=== PATIENT | female | born 1960 | race Caucasian/White ===

== ENCOUNTER → 2016-03-10 | Outpatient (CLI) | payer OTHER ==
[~2016-03-10] MED LIST: FLUT0.15 NAE
[2016-03-10 15:01] LABS: T3 TOTAL 1.21 ng/ml (0.60-1.81); THYROXINE (T4) 4.6 mcg/dl (4.5-10.9)
== END | disposition home or self-care (01) ==
LOC: C.LAB1850 13:16
PROVIDERS: ATTEND Physical Medicine & Rehabilitation
DX: E55.9 Vitamin D deficiency, unspecified (principal); E28.39 Other primary ovarian failure; E03.9 Hypothyroidism, unspecified

== ENCOUNTER → 2016-03-25 | Outpatient (CLI) | payer OTHER ==
--- NOTE | 2016-03-25 15:47 | DIAGNOSTIC IMAGING REPORT ---
THYROID ULTRASOUND CLINICAL HISTORY: R/O DOMINANT NODULE RESIDUAL GLAND/HASHIMOTOS COMPARISON STUDY: Thyroid ultrasound March 17, 2015. TECHNIQUE: Sonography of the thyroid gland was performed. FINDINGS: The patient is status post right thyroid lobectomy. There is no abnormality within the lobectomy bed. The left lobe measures 4.1 x 1.3 x 1.1 cm and is sonographically normal. The isthmus measures 0.2 cm in thickness. IMPRESSION: 1. Expected findings following right thyroid lobectomy. No residual nodule. 2. No left lobe thyroid nodule. Electronically signed by: Arthur Mac M.D. 03/25/2016 3:45 PM Dictated Date/Time: 03/25/2016 3:43 PM
== END | disposition home or self-care (01) ==
LOC: C.ULTR 15:24
PROVIDERS: ATTEND Internal Medicine Endocrinology, Diabetes & Metabolism
DX: E04.2 Nontoxic multinodular goiter (principal); E03.8 Other specified hypothyroidism; E06.3 Autoimmune thyroiditis; Z85.850 Personal history of malignant neoplasm of thyroid

== ENCOUNTER → 2016-04-06 | Outpatient (CLI) | payer OTHER ==
[2016-04-06 15:13] LABS: THYROID STIMULATING HORMONE 1.19 uIu/ml (0.300-4.500)
[2016-04-09 08:04] LABS: THYROGLOBULIN 9.5 NG/ML (2.8-40.9)
== END | disposition home or self-care (01) ==
LOC: C.LAB1850 13:39
DX: E04.2 Nontoxic multinodular goiter (principal); E03.8 Other specified hypothyroidism; E06.3 Autoimmune thyroiditis; Z85.850 Personal history of malignant neoplasm of thyroid

== ENCOUNTER → 2016-12-20 | Outpatient (CLI) | payer OTHER | END | disposition home or self-care (01) | LOC: C.PAPS 14:49 | PROVIDERS: ATTEND Obstetrics & Gynecology | DX: Z01.419 Encounter for gynecological examination (general) (routine) without abnormal findings (principal) ==

== ENCOUNTER → 2017-01-16 | Outpatient (CLI) | payer OTHER ==
--- NOTE | 2017-01-17 07:42 | MAMMOGRAPHY REPORT ---
BILATERAL DIGITAL SCREENING MAMMOGRAM TOMOSYNTHESIS WITH CAD: 01/16/2017 CLINICAL HISTORY: Routine screening. Patient has no complaints. TECHNIQUE: Breast tomosynthesis in addition to standard 2D mammography was performed. Current study was also evaluated with a Computer Aided Detection (CAD) system. COMPARISON: Comparison is made to exams dated: 11/11/2015 mammogram, 11/06/2015 mammogram, 09/18/2013 taryn mogram, 07/15/2010 mammogram, 07/07/2010 mammogram, and 03/17/2009 mammogram - [facility]. BREAST COMPOSITION: The tissue of both breasts is heterogeneously dense, which may obscure small mas ses. FINDINGS: There is a possible area of architectural distortion in the upper outer middle one third o f the left breast (best seen on cc tomosynthesis slice 36 and MLO tomosynthesis slice 25), for which additional spot compression tomosynthesis views and possible ultrasound are recommended. There are a lso possible faint punctate microcalcifications near the area of questionable distortion also in the upper outer quadrant of the left breast, warranting additional spot magnification views. No other suspicious mass, architectural distortion or cluster of microcalcifications is seen bilatera lly. IMPRESSION: ACR BI-RADS CATEGORY 0: INCOMPLETE EVALUATION: NEED ADDITIONAL IMAGING EVALUATION The possible area of architectural distortion and possible faint adjacent microcalcifications in the upper outer quadrant of the left breast need additional imaging evaluation. The patient will be called to schedule an appointment. Approximately 10% of breast cancers are not detected with mammography. A negative mammographic report should not delay biopsy if a clinically suggestive mass is present. Gabby Valencia M.D. ay/:01/16/2017 16:01:41 Die Polisher: Constance Buckner M, [facility] letter sent: Addl Imaging 0 BI-RADS Code: ACR BI-RADS Category 0: Incomplete Evaluation: Need Additional Imaging Evaluation
== END | disposition home or self-care (01) ==
LOC: C.MAMM 12:35
PROVIDERS: ATTEND Internal Medicine
DX: Z12.31 Encounter for screening mammogram for malignant neoplasm of breast (principal); N64.89 Other specified disorders of breast

== ENCOUNTER → 2017-01-23 | Outpatient (CLI) | payer OTHER ==
[~2017-01-23] MED LIST changes: +NATURE THROID PO
--- NOTE | 2017-01-23 17:06 | DIAGNOSTIC IMAGING REPORT ---
SOFT TISS HEAD/NECK-THYROID HISTORY: Nodule L03.8,E06.3 COMPARISON: 04/02/2016 FINDINGS: Right lobe: Surgically removed Left lobe: Maximum linear dimension 4.5 cm. No significant nodularity Isthmus: No nodules. IMPRESSION: 1. Stable postoperative resection of the right thyroid gland. 2. Normal left thyroid. 3. No change from the prior study The above report was generated using voice recognition software. It may contain grammatical, syntax or spelling errors. Electronically signed by: Chang Oscar M.D. 01/23/2017 5:05 PM Dictated Date/Time: 01/23/2017 5:01 PM
== END | disposition home or self-care (01) ==
LOC: C.ULTR 16:08
PROVIDERS: ATTEND Internal Medicine Endocrinology, Diabetes & Metabolism
DX: E04.2 Nontoxic multinodular goiter (principal); E06.3 Autoimmune thyroiditis; E03.8 Other specified hypothyroidism

== ENCOUNTER → 2017-01-23 | Outpatient (CLI) | payer OTHER ==
--- NOTE | 2017-01-23 14:45 | MAMMOGRAPHY REPORT ---
UNILATERAL LEFT DIGITAL DIAGNOSTIC MAMMOGRAM TOMOSYNTHESIS WITH CAD AND TARGETED LEFT ULTRASOUND: CLINICAL HISTORY: 56-year-old woman called back from screening mammography for a possible area of arc hitectural distortion in the left upper outer quadrant, and possible microcalcifications, also in the left upper outer quadrant. Family history of breast cancer = mother and maternal great grandmother. TECHNIQUE: Spot magnification left CC, ML and spot compression left CC and MLO tomosynthesis images were obtained. COMPARISON: Comparison is made to exams dated: 01/16/2017 mammogram - [facility], 11/11/2015 mammogram, 11/06/2015 mammogram, 09/18/2013 mammogram, 07/15/2010 mammogram, and 07/07/2010 mammog tara - [facility]. BREAST COMPOSITION: The tissue of the left breast is heterogeneously dense, which may obscure small masses. FINDINGS: The spot magnification views of the left upper outer quadrant demonstrate a few scattered p unctate microcalcifications. There is no definitive grouping or cluster of suspicious microcalcifica tions identified. The spot compression tomosynthesis views of the left breast demonstrate a possible area of distortion in the lateral middle one third of the left breast (CC tomosynthesis slice 41). No definite area of distortion is identified on the corresponding MLO tomosynthesis images. Further evaluation with ult rasound was performed. Targeted ultrasound was performed in the lateral left breast. The breast parenchymal echotexture is heterogeneous and dense with multiple shadowing areas throughout slightly lowering the sensitivity of ultrasound. Within this limitation, there is a benign cyst measuring 3.6 mm in the 1:00 axis, 1 cm from the nipple. No definite area of architectural distortion or sonographic correlate for the possi ble mammographic distortion is seen. No suspicious irregular solid mass is identified. IMPRESSION: ACR BI-RADS CATEGORY 0: INCOMPLETE EVALUATION: NEED ADDITIONAL IMAGING EVALUATION, TARG ETED ULTRASOUND ACR BI-RADS CATEGORY 0: INCOMPLETE EVALUATION: NEED ADDITIONAL IMAGING EVALUATION 1. There is questionable persistent architectural distortion in the lateral left breast, only seen o n the CC tomosynthesis images, without definite sonographic correlate identified. This finding remai ns indeterminate, particularly given the personal history of dense breasts and strong family history of breast cancer and an infiltrative process such as lobular carcinoma cannot be completely excluded. Therefore, definitive characterization with a contrast-enhanced bilateral breast MRI is recommended . 2. There are no definite clustered or grouped suspicious calcifications in the left upper outer quad rant with the additional spot magnification views. These results and recommendations were discussed with the patient at the time of the exam. Approximately 10% of breast cancers are not detected with mammography. A negative mammographic report should not delay biopsy if a clinically suggestive mass is present. Gabby Valencia M.D. ay/:01/23/2017 12:48:59 Picture Booker: Aileen Cervantes RT(R)(M), [facility] letter sent: Addl Imaging 0 BI-RADS Code: ACR BI-RADS Category 0: Incomplete Evaluation: Need Additional Imaging Evaluation Ult rasound BI-RADS: ACR BI-RADS Category 0: Incomplete Evaluation: Need Additional Imaging Evaluation
== END | disposition home or self-care (01) ==
LOC: C.MAMM 11:00
PROVIDERS: ATTEND Internal Medicine
DX: R92.0 Mammographic microcalcification found on diagnostic imaging of breast (principal); N64.89 Other specified disorders of breast

== ENCOUNTER → 2017-01-24 | Day surgery (SDC) | payer OTHER ==
[2017-01-23 10:25] VITALS: Ht 175.3 cm; Wt 83.2 kg
[~2017-01-24] VITALS: Ht 175.3 cm; Wt 83.2 kg
[~2017-01-24] MED LIST changes: +ETOMIDATE 2 MG/ML 20 ML VIAL IV ONE; +LIDOCAINE HCL 2% 2 ML VIAL (20MG/ML) ONE; +MIDAZOLAM HCL 1 MG/ML 2ML VIAL ONE; +ONDANSETRON INJ 2 MG/ML 2 ML VIAL ONE; +PROPOFOL IV EMULSION 10 MG/ML 20 ML VIAL IV ONE; +SODIUM CHLORIDE 0.9% 500ML 500 ML IV ONE
--- NOTE | 2017-01-24 09:37 | Endo History and Physical ---
History & Physical Date of Service: Jan 24, 2017. Chief Complaint: REFLUX DISEASE WITH ESOPHAGITIS Referring Physician: History of Present Illness patient with significant reflux symptoms. Past Surgical History Hx Cardiac Surgery: No Hx Internal Defibrillator: No Hx Pacemaker: No Hx Abdominal Surgery: Yes (HYSTEROSCOPY) Hx of Implantable Prosthesis: No Hx Post-Op Nausea and Vomiting: Yes Hx Cancer Surgery: Yes (RT PARTIAL THRYOIDECTOMY) Hx Thoracic Surgery: No Hx Orthopedic: No Hx Urinary Tract Surgery: No Family History None Social History Smoking Status: Never Smoker Hx Substance Use: No Hx Alcohol Use: Yes (3 GLASSES WINE WEEKLY) Allergies Coded Allergies: Penicillins (Verified Allergy, Intermediate, HIVES, 01/24/17) Codeine (Verified Adverse Reaction, Mild, N&V, 01/24/17) Doxycycline (Verified Adverse Reaction, Mild, hives, 01/24/17) unsure if reaction to med or to the sun Ibuprofen (Verified Adverse Reaction, Mild, GI UPSET AND ABD PAIN, ) Current Medications Reported Home Medications Medications Dose Route/Sig Max Daily Dose Days Date Category Dose Instructions [Nature Throid] 1 Dose PO BID 01/23/17 Reported 1 DOSE IN AM 1/2 DOSE IN PM Flonase Allergy Relief (Fluticasone Propionate (Nasal)) 50 Mcg/Act Spr 2 Sprays MANASA DAILY PRN 08/27/15 Reported Vital Signs Weight (Kilograms): 83.18 Height (Feet): 5 Height (Inches): 9 Date Time Temp Pulse Resp B/P (MAP) Pulse Ox O2 Delivery O2 Flow Rate FiO2 01/24/17 09:26 36.6 79 18 117/76 (90) 96 Room Air Physical Exam General Appearance: no apparent distress Respiratory/Chest: Auscultation: breath sounds normal Cardiovascular: Heart Auscultation: RRR Abdomen: Inspection & Palpation: soft Liver: non-tender Assessment and Plan stable for EGD
--- NOTE | 2017-01-24 10:04 | Discharge Instructions ---
Endoscopy Patient Instructions Date / Procedure(s) Performed Jan 24, 2017. EGD Allergy Information Coded Allergies: Penicillins (Verified Allergy, Intermediate, HIVES, 01/24/17) Codeine (Verified Adverse Reaction, Mild, N&V, 01/24/17) Doxycycline (Verified Adverse Reaction, Mild, hives, 01/24/17) unsure if reaction to med or to the sun Ibuprofen (Verified Adverse Reaction, Mild, GI UPSET AND ABD PAIN, ) Discharge Date / Findings Jan 24, 2017. normal upper endoscopy Provider Instructions Activity Restrictions - No exercising or heavy lifting for 24 hours. - Do not drink alcohol the day of the procedure. - Do not drive a car or operate machinery until the day after the procedure. - Do not make any important decisions or sign important papers in 24 hours after the procedure. Following Day: - Return to full activity which may include returning to work/school. Diet Start your diet with liquids and light foods (jello, soup, juice, toast). Then eat your usual diet if not nauseated. Treatment For Common After Affects For mild abdominal pain, bloating, or excessive gas: - Rest - Eat lightly - Lie on right side Follow-Up Information Follow-up with as scheduled Anesthesia Information What You Should Know You have had a procedure that required some medicine to reduce anxiety and discomfort. This treatment is called moderate sedation. After receiving the treatment, you may be sleepy, but you will be able to breathe on your own. The effects of the treatment may last for several hours. Follow these instructions along with Activity/Diet recommendations noted above: * Do NOT do anything where dizziness or clumsiness would be dangerous. * Rest quietly at home today, then you can be up and about tomorrow. * Have a responsible person stay with you the rest of today. * You may have had an I.V. today. If so, you may take the dressing off later today. Recommendations Call your doctor if: * Trouble breathing * Continuous vomiting for more than 24 hours * Temperature above 101 degrees * Severe abdominal pain or bloating * Pain not relieved by pain medicine ordered * There is increased drainage or redness from any incision * A large amount of rectal bleeding greater than 2-3 tablespoons. (If you had a polyp/s removed or have hemorrhoids, a small amount of blood - from the rectum is to be expected.) * You have any unanswered questions or concerns. IN THE EVENT OF A SERIOUS EMERGENCY, GO TO THE NEAREST EMERGENCY ROOM Your discharge instructions were prepared by provider Clark Patino. Patient Instructions Signature Page Antonella Figueroa Patient (or Guardian) Signature/Date: I have read and understand the instructions given to me by my caregivers. Caregiver/RN/Doctor Signature/Date: The above-named patient and/or guardian has received patient instructions on this date. + Original Patient Signature Page (only) stays with chart. Please make copy for patient.
--- NOTE | 2017-01-24 10:14 | GI REPORT ---
Procedure Date: 01/24/2017 9:33 AM Procedure: Upper GI endoscopy Indications: Epigastric abdominal pain, Dyspepsia Medicines: See the Anesthesia note for documentation of the administered medications Complications: No immediate complications. Estimated Blood Loss: Estimated blood loss: none. Estimated blood loss: none. Procedure: Pre-Anesthesia Assessment: - Prior to the procedure, a History and Physical was performed, and patient medications, allergies and sensitivities were reviewed. The patient's tolerance of previous anesthesia was reviewed. - The risks and benefits of the procedure and the sedation options and risks were discussed with the patient. All questions were answered and informed consent was obtained. - Patient identification and proposed procedure were verified prior to the procedure by the physician and the nurse. The procedure was verified in the pre-procedure area. - Pre-procedure physical examination revealed no contraindications to sedation. - After reviewing the risks and benefits, the patient was deemed in satisfactory condition to undergo the procedure. After obtaining informed consent, the endoscope was passed under direct vision. Throughout the procedure, the patient's blood pressure, pulse, and oxygen saturations were monitored continuously. The Scope was introduced through the mouth, and advanced to the third part of duodenum. The upper GI endoscopy was accomplished without difficulty. The patient tolerated the procedure well. Findings: The esophagus was normal. The stomach was normal. The examined duodenum was normal. The cardia and gastric fundus were normal on retroflexion. Impression: - Normal esophagus. - Normal stomach. - Normal examined duodenum. - No specimens collected. Recommendation: - Discharge patient to home. Clark Patino M.D. Clark Patino MD 01/24/2017 10:14:17 AM This report has been signed electronically. Note Initiated On: 01/24/2017 9:33 AM I attest to the content of the Intraoperative Record and orders documented therein, exceptions below
--- NOTE | 2017-01-24 10:31 | Anesthesiology Progress Note ---
Anesthesia Post Op Note Date & Time Jan 24, 2017 at 10:31 Vital Signs Pain Intensity: 1 Vital Signs Past 12 Hours Date Time Temp Pulse Resp B/P (MAP) Pulse Ox O2 Delivery O2 Flow Rate FiO2 01/24/17 10:25 72 18 127/65 (85) 100 Room Air 01/24/17 10:10 76 16 138/78 (98) 98 Room Air 01/24/17 09:26 36.6 79 18 117/76 (90) 96 Room Air Notes Mental Status: alert / awake / arousable, participated in evaluation Pt Amnestic to Procedure: Yes Nausea / Vomiting: adequately controlled Pain: adequately controlled Airway Patency, RR, SpO2: stable & adequate BP & HR: stable & adequate Hydration State: stable & adequate Anesthetic Complications: no major complications apparent
[2017-01-24 10:40] VITALS: BP 136/85; PULSE 73; O2SAT 99
== END | disposition home or self-care (01) ==
LOC: C.GI 08:53
PROVIDERS: ATTEND Internal Medicine Gastroenterology
DX: R10.13 Epigastric pain (principal); G47.33 Obstructive sleep apnea (adult) (pediatric); Z98.890 Other specified postprocedural states; Z90.89 Acquired absence of other organs; Z88.0 Allergy status to penicillin; Z88.1 Allergy status to other antibiotic agents; Z88.5 Allergy status to narcotic agent

== ENCOUNTER → 2017-02-08 | Outpatient (CLI) | payer OTHER ==
[~2017-02-08] MED LIST changes: -ETOMIDATE 2 MG/ML 20 ML VIAL IV ONE; -LIDOCAINE HCL 2% 2 ML VIAL (20MG/ML) ONE; -MIDAZOLAM HCL 1 MG/ML 2ML VIAL ONE; -ONDANSETRON INJ 2 MG/ML 2 ML VIAL ONE; -PROPOFOL IV EMULSION 10 MG/ML 20 ML VIAL IV ONE; -SODIUM CHLORIDE 0.9% 500ML 500 ML IV ONE
--- NOTE | 2017-02-09 07:54 | MAMMOGRAPHY REPORT ---
BREAST MRI OF BOTH BREASTS : 02/08/2017 CLINICAL HISTORY: 56-year-old woman called back from screening mammography in January 2017 for a pos sible area of architectural distortion in the upper outer quadrant of the left breast. Additional sp ot compression tomosynthesis views demonstrate questionable persistent distortion in the CC projectio n but not definitely seen in the MLO projection and no suspicious sonographic correlate identified. Patient has dense breasts and a strong family history of breast cancer and MRI was recommended to exc lude an infiltrative process or suspicious enhancement. COMPARISON: Comparison is made to exams dated: 01/23/2017 ultrasound, 01/23/2017 mammogram, 01/17/20 17 mammogram - [facility], 11/11/2015 mammogram, 11/06/2015 mammogram, and 09/18/2013 ma mmogram - [facility]. TECHNIQUE: Using a 1.5 Sarah magnet and dedicated breast coil, multisequence axial images were obtain ed through the breasts. After uneventful IV administration of 8 mL of Gadavist, dynamic multiphase c ontrast-enhanced axial images, and sagittal postcontrast were obtained. Temporal subtraction axial i mages and 3-D MIP images are provided. Everything was then reviewed on a 3-D workstation, [place]. FINDINGS: Right breast: There is minimal background parenchymal enhancement of the right breast. No suspicious enhancing mass, abnormal amount mass enhancement, architectural distortion or suspicious kinetics ar e seen in the right breast. No focal skin thickening or nipple retraction. No suspicious right axil sammi lymphadenopathy. Left breast: There is minimal background parenchymal enhancement of the left breast. There is a prom inent asymmetry with associated focal non-mass enhancement in the upper outer posterior left breast, approximately 1:00 axis, in similar shape and location as the questionable area of architectural dist ortion that persisted on the spot compression left CC tomosynthesis view. It measures approximately 18 mm in craniocaudal by 17 mm in AP by 7 mm in transverse dimension. There are associated persisten t kinetics and small round areas of internal T2 hyperintense signal. Differential considerations inc lude focal fibrocystic change and DCIS. Definitive characterization with an MRI guided biopsy is rec ommended, as prior targeted ultrasound was unyielding and non-mass enhancement is not always visualiz ed on ultrasound. The only other enhancement in the left breast is of a lobulated and circumscribed T2 hyperintense and enhancing mass in the inferior approximate 5:00 to 6:00 middle one third of the l eft breast measuring 6 mm in craniocaudal by 7 mm in AP by 3 mm in transverse dimension. There are a ssociated persistent and plateau kinetics. In retrospect this is not clearly seen mammographically t o ensure stability and is also indeterminate. Options include Second Look ultrasound with possible u ltrasound-guided core biopsy versus MRI guided biopsy, which could also be performed at the time of b iopsy of the asymmetry with associated non-mass enhancement in the upper outer posterior left breast. No focal skin thickening or nipple retraction is seen. The retromammary fat of the left breast is intact. No suspicious left axillary lymphadenopathy. IMPRESSION: ACR BI-RADS CATEGORY 4: SUSPICIOUS 1. MRI guided biopsy is recommended for an asymmetry with associated non-mass enhancement measuring 18 x 17 x 7 mm in the 1:00 posterior left breast, which is thought to correlate with the persistent q uestionable architectural distortion seen mammographically and initial targeted ultrasound was unyiyolie chu. 2. A second incidentally identified lobulated 7 mm mass in the 5:00 to 6:00 middle one third of the left breast is indeterminate. Could perform MRI guided biopsy of this mass as well at the time of MR I guided biopsy in the left upper outer quadrant, both utilizing lateral approach. Alternatively, if this is not amenable to MRI biopsy at the same time as the non-mass enhancement, could perform Secon d Look ultrasound with possible ultrasound-guided core biopsy at the same appointment. 3. No MRI evidence of malignancy in the right breast. 4. No suspicious right or left axillary lymphadenopathy. The patient will be called to schedule an appointment. Gabby Valencia M.D. ay/:02/08/2017 21:14:02 Anesthesiology Teacher: shoe shanker, [facility] letter sent: Abnormal 4/5 BI-RADS Code: ACR BI-RADS Category 4: Suspicious
== END | disposition home or self-care (01) ==
LOC: C.MRI 15:18
PROVIDERS: ATTEND Nurse Practitioner Adult Health
DX: R92.8 Other abnormal and inconclusive findings on diagnostic imaging of breast (principal); N64.89 Other specified disorders of breast; N63.20 Unspecified lump in the left breast, unspecified quadrant

== ENCOUNTER → 2017-03-08 | Outpatient (CLI) | payer OTHER ==
[~2017-03-08] MED LIST changes: +GADAVIST IV PRN; +LIDO/EPINEPHRINE/SOD BICARB 20 ML VIAL INFIL ONE; +XYLOCAINE 1%/SOD BICARB 20 ML VIAL INFIL ONE
--- NOTE | 2017-03-08 11:25 | Discharge Instructions ---
Discharge Instructions Procedure Procedure Date: Mar 08, 2017. Reason for visit: Left Non-Mass Enhancement. Discharge Discharge Date: Mar 08, 2017. Discharge Diagnosis: status post breast biopsies Instructions Activity Recommendations: Additional Limitations (see below) Return to School/Work: no limitations Recommended Home Diet: No Limitations Provider Instructions: ACTIVITY RECOMMENDATIONS: * No lifting, pushing, pulling or exercising the affected side for three days. RETURN TO SCHOOL/WORK: * You may return to work/school after the procedure, but do not perform any strenuous activities for 24 to 48 hours. MEDICATIONS: * Tylenol (two 325 mg) every four to six hours if needed for mild pain (if not allergic to Tylenol). DIET: * Resume previous diet. SPECIAL CARE INSTRUCTIONS: * Keep biopsy site dry for 24 hours. May shower after 24 hours, but do not soak (bathe) incision. * May remove Tegaderm (plastic patch) tomorrow AFTER showering. * Leave the steri-strips on for one week. Allow the steri-strips to fall off by themselves. If not off after one week, you may remove them. You may place a Bandaid crosswise over the strips, if desired. * Apply ice 10 minutes on and 10 minutes off as needed. * Wear a bra at bedtime to sleep more comfortably for 2-3 days. * Your referring physician should have the results after approximately 5 to 7 business days. * Call for unusual bleeding, fever, drainage, etc or if you have any questions call during normal business hours or after hours call Dr Hardin, . FOLLOW UP VISIT: Follow-up with Referring Physician as scheduled. Allergies Coded Allergies: Penicillins (Verified Allergy, Intermediate, HIVES, 01/24/17) Codeine (Verified Adverse Reaction, Mild, N&V, 01/24/17) Doxycycline (Verified Adverse Reaction, Mild, hives, 01/24/17) unsure if reaction to med or to the sun Ibuprofen (Verified Adverse Reaction, Mild, GI UPSET AND ABD PAIN, ) Gomez Desir Recommendations: Call your doctor if: * Temperature above 101 degrees * Pain not relieved by pain medicine ordered * There is increased drainage or redness from any incision * You have any unanswered questions or concerns. Your Doctors Instructions noted above were prepared by provider Janelle Hardin. Patient Signature Section: Patient Instructions Signature Page Antonella Figueroa Patient (or Guardian) Signature/Date: I have read and understand the instructions given to me by my caregivers. Caregiver/RN/Doctor Signature/Date: The above-named patient and/or guardian has received patient instructions on this date. + Original Patient Signature Page (only) stays with chart. Please make copy for patient.
--- NOTE | 2017-03-08 14:56 | MAMMOGRAPHY REPORT ---
MRI BIOPSY LEFT BREAST: 03/08/2017 CLINICAL HISTORY: Non-mass enhancement within the left upper outer quadrant on recent breast MRI. COMPARISON: Comparison is made to exams dated: 03/08/2017 ultrasound, 03/08/2017 mammogram, 02/08/2017 [facility] MRI, 01/23/2017 ultrasound, 01/23/2017 mammogram, and 01/16/2017 mammogram - [facility]. Technique: Written informed consent was obtained from the patient after discussion of the procedure a s well as risks of MRI guided core needle biopsy. A preprocedural timeout was performed prior to sta rting the procedure. The patient was placed prone on a 1.5 Sarah MR scanner. The lateral aspect of the left breast was cl eansed with ChloraPrep. The left breast was positioned in a dedicated breast coil and MRI guidance g rid device. After localizing sequences were obtained, pre-and postcontrast axial sequences were performed which c onfirm the persistence of the non-mass enhancement in the left upper outer quadrant. Approximately 8 .5 mL of Gadavist IV contrast was administered. Using the images, targeting was performed using the [employer] software. The skin was prepped with Betadine through the grid and after local anesthesia was achieved, an intro ducer sheath and localizing obturator were placed into the site using a lateral approach. The locati on of the sheath was confirmed with additional images. Subsequently, multiple samples were obtained from the site using a Suros 9-gauge vacuum-assisted core biopsy device. Postprocedural images demonstrate postbiopsy changes in the expected location of the biopsied non-mass enhancement. Through the introducer sheath, a marker clip was placed. Direct pr essure was held at the biopsy site until hemostasis was achieved. The patient tolerated the procedure without immediate complication. Mammography was obtained at the breast center after completion of the biopsy to confirm marker clip placement. [facility] for further details. The specimens were sent to pathology for analysis. Wo und care instructions were given to the patient. Review of the images shows probable subtle clip artifact in the left 6:00 breast from ultrasound-guid ed biopsy performed earlier today. When accounting for differences in breast position between the di agnostic MRI exam and the images from the biopsy, the clip artifact is located in the general region of the enhancing mass seen on the prior diagnostic MRI, indicating probable correlation between the b iopsied sonographic mass and the MRI mass. The enhancing mass in this region seen on the diagnostic MRI is not evident on the current exam, with no enhancing findings seen in this region on today's exa m. IMPRESSION: MRI BIOPSY MRI guided core needle biopsy of the non-mass enhancement in the left upper outer quadrant, with clip placement. The patient will receive pathology results from her referring provider. Janelle Hardin M.D. ah/:03/08/2017 12:02:11 Route Process Administrator: monologist, [facility]
== END | disposition home or self-care (01) ==
LOC: C.MRI 10:10
PROVIDERS: ATTEND Nurse Practitioner Adult Health
DX: R92.8 Other abnormal and inconclusive findings on diagnostic imaging of breast (principal); N60.12 Diffuse cystic mastopathy of left breast; N60.22 Fibroadenosis of left breast

== ENCOUNTER → 2017-03-08 | Outpatient (CLI) | payer OTHER ==
[~2017-03-08] MED LIST changes: -GADAVIST IV PRN; -LIDO/EPINEPHRINE/SOD BICARB 20 ML VIAL INFIL ONE; -XYLOCAINE 1%/SOD BICARB 20 ML VIAL INFIL ONE
--- NOTE | 2017-03-08 14:56 | MAMMOGRAPHY REPORT ---
ULTRASOUND GUIDED BIOPSY LEFT BREAST: 03/08/2017 CLINICAL HISTORY: Left 5:30 breast mass seen on ultrasound, which is felt to correspond with an enhan cing mass seen on breast MRI. PATIENT CONSENT: The procedure, risks and benefits were discussed with the patient and informed writt en consent was obtained. A timeout was performed immediately prior to the procedure. PROCEDURE DESCRIPTION: With ultrasound guidance, aseptic technique, and lidocaine as the local anesth etic (1% lidocaine to anesthetize the skin and 1% lidocaine with epinephrine to anesthetize the deepe r tissues), the mass of concern was sampled 4 times with a 14-gauge Achieve biopsy needle. Immediat sebas thereafter, with ultrasound guidance, aseptic technique, and lidocaine as the local anesthetic, a metallic localizer ribbon-shaped clip was placed at the biopsy site. Direct pressure was applied to the site immediately post procedure and hemostasis was achieved. Postprocedure unilateral mammogram s were performed to confirm clip placement. The patient tolerated the procedure without complication . She was given wound care instructions. The specimens were sent to pathology for analysis. COMPARISON: Comparison is made to exams dated: 02/08/2017 breast MRI, 01/23/2017 ultrasound, 01/24/20 17 mammogram, and 01/16/2017 mammogram - [facility]. IMPRESSION: ULTRASOUND GUIDED BIOPSY Ultrasound guided core needle biopsy of the left 5:30 breast mass, with clip placement. The patient will receive pathology results from her referring provider. Janelle Hardin M.D. ah/:03/08/2017 12:06:12 Panel Gluer: Zainab RUTH)(Go), [facility]
--- NOTE | 2017-03-08 15:00 | MAMMOGRAPHY REPORT ---
ULTRASOUND OF LEFT BREAST: 03/08/2017 CLINICAL HISTORY: Enhancing 7 mm lobulated mass in the left 5 to 6:00 breast seen on recent breast MR I, for which second look ultrasound was recommended. COMPARISON: Comparison is made to exams dated: 03/08/2017 mammogram, 01/23/2017 mammogram, 01/16/2017 mammogram, and 02/08/2017 breast MRI - [facility]. TECHNIQUE: Real-time targeted ultrasound of the left breast was performed. FINDINGS: Real-time, high-resolution targeted ultrasound was performed of the left 5 to 6:00 breast in the region of the enhancing mass seen on the prior breast MRI. In the left breast at approximatel y 5:30, 2 cm from the nipple, there is a subtle lobulated isoechoic mass which measures 6 x 5 mm. Th is is similar in size and shape and at a similar location to the mass seen on the breast MRI, and is felt to correlate with the enhancing mass on MRI. The finding is indeterminate and an ultrasound monster ded core needle biopsy is recommended for further evaluation. IMPRESSION: ACR BI-RADS CATEGORY 4: SUSPICIOUS - FOLLOW-UP RECOMMENDED Isoechoic 6 mm mass in the left breast at 5:30 on ultrasound, which is felt to correspond with the en hancing mass seen on breast MRI. The mass is indeterminate and ultrasound-guided core needle biopsy is recommended for further evaluation. The findings were discussed with the patient at the time of the exam. Ultrasound guided biopsy was p erformed immediately after the ultrasound exam. Janelle Hardin M.D. ah/:03/08/2017 12:04:35 Wire Taper: Zainab RUTH)(Go), [facility] BI-RADS Code: ACR BI-RADS Category 4: Suspicious
--- NOTE | 2017-03-08 15:01 | MAMMOGRAPHY REPORT ---
UNILATERAL LEFT DIGITAL DIAGNOSTIC MAMMOGRAM TOMOSYNTHESIS: 03/08/2017 CLINICAL HISTORY: Status post left breast biopsies. TECHNIQUE: Breast tomosynthesis in addition to standard 2D mammography was performed. Postprocedura l left CC and ML tomosynthesis images including C views were obtained. COMPARISON: Comparison is made to exams dated: 03/08/2017 ultrasound biopsy, 02/08/2017 breast MRI, ultrasound, 01/23/2017 mammogram, and 01/16/2017 mammogram - [facility]. BREAST COMPOSITION: The tissue of the left breast is heterogeneously dense, which may obscure small masses. FINDINGS: A new ribbon-shaped biopsy marker clip is seen within the left inferior breast at the site of the biopsied sonographic mass in the left 5:30 breast. A new biopsy marker clip is seen within t he left upper outer quadrant at the site of the biopsied non-mass enhancement seen on breast MRI. Th e biopsy clip is located in the region of the mammographic architectural distortion, indicating good correlation between the biopsied MRI finding and the mammographic finding. No significant postbiopsy hematoma is seen. IMPRESSION: POST PROCEDURE IMAGING FOR MARKER PLACEMENT New biopsy marker clip status post left breast biopsies. Pathology results are pending. Approximately 10% of breast cancers are not detected with mammography. A negative mammographic report should not delay biopsy if a clinically suggestive mass is present. Janelle Hardin M.D. /:03/08/2017 12:08:11 Mover Helper: Zainab RUTH)(Go), [facility] BI-RADS Code: Post Procedure Imaging For Marker Placement
== END | disposition home or self-care (01) ==
LOC: C.MAMM 08:55
PROVIDERS: ATTEND Nurse Practitioner Adult Health
DX: N63.20 Unspecified lump in the left breast, unspecified quadrant (principal); N60.12 Diffuse cystic mastopathy of left breast; N60.22 Fibroadenosis of left breast